=== PATIENT | female | born 1965 | race African-American/Black ===

== ENCOUNTER 2020-08-15 16:13 | Emergency (ER) | payer OTHER ==
[~2020-08-15] VITALS: Ht 157.5 cm; Wt 66.7 kg
[2020-08-15] MEDS ORDERED: FAMOTIDINE/PF INJ 20 MG/2 ML VIAL IV ONE ×2 (16:48→17:00)
[2020-08-15] MEDS ORDERED: MORPHINE SULFATE INJ 4 MG/ML DISP.SYRIN ONE ×2 (16:48→21:50)
[2020-08-15] MEDS ORDERED: MAG HYDROX/AL HYDROX/SIMETH 30 ML UDC ONE (16:48)
[2020-08-15] MEDS ORDERED: ONDANSETRON HCL/PF 4 MG/2 ML VIAL ONE (16:48)
[2020-08-15] MEDS ORDERED: LIDOCAINE VISCOUS 2% UD 15 ML UDC ONE (16:48)
[2020-08-15 16:56] LABS: BASOPHILS % (AUTO) 0.2 % (0.0-2.0); EOSINOPHILS % (AUTO) 0.3 % (0.0-6.0); HEMATOCRIT 38 % (33-45); HEMOGLOBIN 12.6 g/dL (11.5-14.8); LYMPHOCYTES # (AUTO) 1.4 /CMM (0.8-4.8); MEAN CORPUSCULAR HGB CONC 33 g/dl (31.0-36.0); MEAN CORPUSCULAR VOLUME 91 fL (82-100); MONOCYTES # (AUTO) 0.5 /CMM (0.1-1.30); MONOCYTES % (AUTO) 6.8 % (2.0-12.0); NEUTROPHILS % (AUTO) 74.7 % (43.0-81.0); PLATELET COUNT (AUTO) 309 /CMM (150-450); RED BLOOD CELL COUNT(AUTO) 4.18 MIL/uL (4.0-5.2)
--- NOTE | 2020-08-15 16:59 | NUR ---
DIFFUSE ABDOMINAL PAIN THAT STARTED AFTER EATING 11AM. PT AAOX4, VSS. RR EVEN & UNLABORED. DENIES CP, SOB, DIZZINESS, N/V AT THIS TIME. PT SEEN & EVAL'D BY DR. LYN. MEDICATED ORDERED. WILL CONT TO MONITOR.
[2020-08-15] MEDS ORDERED: ONDANSETRON HCL/PF 4 MG/2 ML VIAL IVP ONE (17:00)
[2020-08-15] MEDS ORDERED: MAG HYDROX/AL HYDROX/SIMETH 30 ML UDC PO ONE (17:00)
[2020-08-15] MEDS ORDERED: MORPHINE SULFATE INJ 2 MG/ML DISP.SYRIN IV ONE ×2 (17:00→22:00)
[2020-08-15] MEDS ORDERED: LIDOCAINE VISCOUS 2% UD 15 ML UDC MM ONE (17:00)
[2020-08-15 17:08] LABS: CALCIUM, SERUM 9.9 mg/dL (8.5-10.1); CARBON DIOXIDE 27 mmol/L (21-32); CHLORIDE 102 mmol/L (98-107); CREATININE 0.7 mg/dL (0.6-1.3); GLUCOSE 105 mg/dL (74-106); POTASSIUM 3.8 mmol/L (3.5-5.1); SODIUM SERUM 138 mmol/L (136-145); UREA NITROGEN, BLOOD 8 mg/dL (7-18)
[2020-08-15 17:16] LABS: ALANINE AMINOTRANSFERASE 640 U/L (12-78); ALBUMIN 4.1 g/dL (3.4-5.0); ALKALINE PHOSPHATASE 173 U/L (46-116); ASPARTATE AMINOTRANSFERASE 613 U/L (15-37); BILIRUBIN,DIRECT 0.8 mg/dL (0.0-0.2); BILIRUBIN,TOTAL 1.2 mg/dL (0.2-1.0); LIPASE 105 U/L (73-393); TOTAL PROTEIN, SERUM 8.6 g/dL (6.4-8.2)
[2020-08-15] MEDS ORDERED: ACYC400T PO (17:32)
[2020-08-15] MEDS ORDERED: AMIT10TA6 PO (17:32)
--- NOTE | 2020-08-15 18:28 | NUR ---
PT ACCEPTED BY MD, AWAITING BED ASSIGNMENT.
[2020-08-15] MEDS ORDERED: SUCR1TAB31 PO (18:29)
[2020-08-15] MEDS ORDERED: PANT20TA2 PO (18:29)
--- NOTE | 2020-08-15 18:53 | NUR ---
PER [facility] IN[facility] APPROVED. FAXED COVID RESULT TO [phone]
--- NOTE | 2020-08-15 19:05 | NUR ---
REC'D REPORT FROM [facility]
--- NOTE | 2020-08-15 19:55 | NUR ---
PT ACCEPTED TO [facility] BY DR VEE. ROOM 303. # FOR REPORT [phone]
[2020-08-15 20:06] LABS: BILIRUBIN,URINE NEGATIVE (NEGATIVE); COLOR,URINE YELLOW (YELLOW); LEUKOCYTE ESTERASE ,URINE NEGATIVE (NEGATIVE); NITRITE, URINE NEGATIVE (NEGATIVE); PH,URINE 8.5 (5.0-8.0); PROTEIN,URINE NEGATIVE (NEGATIVE); UGLUCOSE NEGATIVE (NEGATIVE); UROBILINOGEN,URINE 0.2 EU/dL (0.2)
--- NOTE | 2020-08-15 20:07 | NUR ---
GAVE REPORT TO SHIRLEY MUSTAFA AT [facility]
--- NOTE | 2020-08-15 20:07 | NUR ---
CALL FROM LAB [facility] COVID NEGATIVE.
--- NOTE | 2020-08-15 21:16 | NUR ---
[facility] ETA [id number]
[2020-08-15] MEDS ORDERED: IV NS 0.9% 1,000 ML BAG IV ONE (22:00)
[2020-08-15] MEDS ORDERED: FAMOTIDINE (20 MG) 20 MG TABLET ONE (22:09)
[2020-08-15] MEDS ORDERED: FAMOTIDINE (20 MG) 20 MG TABLET PO ONE (22:30)
--- NOTE | 2020-08-15 22:49 | NUR ---
[facility] NEW ETA 45MIN
[2020-08-15 23:39] VITALS: BP 128/65
--- NOTE | 2020-08-15 23:42 | NUR ---
GAVE REPORT TO EMS AND TRANSFER PAPERWORK
== END 2020-08-15 23:39 | disposition short-term general hospital (02) ==
LOC: ER 16:18
DX: K80.21 Calculus of gallbladder without cholecystitis with obstruction (principal); Z82.49 Family history of ischemic heart disease and other diseases of the circulatory system; Z79.899 Other long term (current) drug therapy; Z87.11 Personal history of peptic ulcer disease; Z20.822 Contact with and (suspected) exposure to COVID-19; R94.31 Abnormal electrocardiogram [ECG] [EKG]
CPT/HCPCS: 36415; 76705; 80048; 80076; 81003; 83690; 84484; 85025; 87081; 87426; 93005; 96361; 96374; 96375; 96376; 99285; C9803; J2270 ×2; J2405; J3490; J7030